=== PATIENT | female | born 1955 | race African-American/Black ===

== ENCOUNTER 2017-04-18 21:05 | Emergency (ER) | payer OTHER ==
[2017-04-18 21:17] VITALS: BP 134/74; PULSE 88; TEMP 98.2; BMI 42.3
[2017-04-18] MEDS ORDERED: ALBUTEROL SO4 0.083% IH SOL 2.5 MG/3 ML VIAL.NEB. NEB ONE ×2 (21:22→21:24)
[2017-04-18] MEDS ORDERED: predniSONE 20 MG TABLET (UD) PO ONE (21:24)
[2017-04-18] MEDS ORDERED: predniSONE 20 MG TABLET (UD) ONE (21:25)
--- NOTE | 2017-04-18 21:48 | PDOC ---
History of Present Illness - General History Source: Patient Exam Limitations: No Limitations - History of Present Illness Initial Comments: 04/18/17 21:49 The patient is a 61-year-old female, with a significant past medical history of HTN, who presents to the ED with 4 days of cold-like symptoms. The patient states that on Thursday she began to develop a cough, chills, nausea, headache , and ear pain. She reports taking Motrin and cough medicine with mild relief of her symptoms. She presents to the ER today because her symptoms have progressively worsened and she has now developed difficulty breathing accompanied by wheezing. Last dose of Motrin was this afternoon. The patient denies any vomiting, diarrhea, or abdominal pain. PCP: Dr. Fuentes <Elvira Wooten - Last Filed: 04/18/17 21:49> <Richard Cassidy - Last Filed: 04/19/17 06:18> - General Chief Complaint: Cold Symptoms Stated Complaint: FLU Past History <Elvira Wooten - Last Filed: 04/18/17 21:49> - Past Medical History COPD: No HTN: Yes Other medical history: MORBIDLY OBESE - Surgical History Cholecystectomy: Yes - Suicide/Smoking/Psychosocial Hx Smoking History: Current every day smoker Number of Cigarettes Smoked Daily: 10 Information on smoking cessation initiated: Yes 'Breaking Loose' booklet given: 04/18/17 <Richard Cassidy - Last Filed: 04/19/17 06:18> - Past Medical History Allergies/Adverse Reactions: Allergies Allergy/AdvReac Type Severity Reaction Status Date / Time No Known Allergies Allergy Unverified 04/18/17 21:11 Home Medications: Ambulatory Orders Albuterol Sulfate Inhaler - [Ventolin HFA Inhaler -] 1 - 2 inh PO Q6H PRN #1 inhaler 04/18/17 Amlodipine Besylate 10 mg PO DAILY 04/18/17 Aspirin [Ecotrin] 81 mg PO DAILY 04/18/17 Ibuprofen [Motrin Ib] 200 mg PO PRN PRN 04/18/17 Lisinopril [Prinivil -] 40 mg PO DAILY 04/18/17 Prednisone [Prednisone 50 MG TABLETS] 50 mg PO DAILY #3 tablet 04/18/17 Review of Systems - Review of Systems Able to Perform ROS?: Yes Comments:: 04/18/17 21:50 GENERAL/CONSTITUTIONAL: (+)Fever. No fever. No weakness. HEAD, EYES, EARS, NOSE AND THROAT: (+)ear pain. No change in vision. No ear discharge. No sore throat. CARDIOVASCULAR: (+)Shortness of breath. No chest pain. RESPIRATORY: (+)cough, wheezing. No hemoptysis. SKIN: No rash GASTROINTESTINAL: (+)Nausea. No vomiting, diarrhea or constipation. GENITOURINARY: No dysuria, frequency, or change in urination. MUSCULOSKELETAL: No joint or muscle swelling or pain. No neck or back pain. NEUROLOGIC: (+)Headache. No vertigo, loss of consciousness, or change in strength/sensation. ENDOCRINE: No increased thirst. No abnormal weight change. HEMATOLOGIC/LYMPHATIC: No anemia, easy bleeding, or history of blood clots. ALLERGIC/IMMUNOLOGIC: No hives or skin allergy. <Elvira Wooten - Last Filed: 04/18/17 21:49> *Physical Exam - Vital Signs Last Vital Signs Temp Pulse Resp BP Pulse Ox 98.2 F 88 18 134/74 93 L 04/18/17 21:13 04/18/17 21:13 04/18/17 21:13 04/18/17 21:13 04/18/17 21:13 - Physical Exam Comments: 04/18/17 21:52 GENERAL: Awake, alert, and fully oriented, in no acute distress. HEAD: No signs of trauma ENT: Auricles normal inspection, hearing grossly normal, nares patent, oropharynx clear EYES: PERRLA, EOMI, sclera anicteric, conjunctiva clear without exudates. Moist mucosa. NECK: Normal ROM, supple, no lymphadenopathy, JVD, or masses LUNGS: (+)Diffuse wheezes. HEART: Regular rate and rhythm, normal S1 and S2, no murmurs, rubs or gallops ABDOMEN: Soft, nontender, normoactive bowel sounds. No guarding, no rebound. No masses EXTREMITIES: Normal range of motion, no edema. No clubbing or cyanosis. No cords, erythema, or tenderness NEUROLOGICAL: Cranial nerves II through XII grossly intact. Normal speech, normal gait SKIN: Warm, Dry, normal turgor, no rashes or lesions noted <Elvira Wooten - Last Filed: 04/18/17 21:49> - Vital Signs Last Vital Signs Temp Pulse Resp BP Pulse Ox 98.2 F 88 18 134/74 93 L 04/18/17 21:13 04/18/17 21:13 04/18/17 21:13 04/18/17 21:13 04/18/17 21:13 <Richard Cassidy - Last Filed: 04/19/17 06:18> ED Treatment Course - Medications Given in the ED: ED Medications Discontinued Medications Generic Name Dose Route Start Last Admin Trade Name Freq PRN Reason Stop Dose Admin Albuterol Sulfate 1 amp 04/18/17 21:24 04/18/17 21:27 Ventolin 0.083% Nebulizer Soln - NEB 04/18/17 21:25 1 amp ONCE ONE Administration Prednisone 60 mg 04/18/17 21:24 04/18/17 21:27 Deltasone - PO 04/18/17 21:25 60 mg ONCE ONE Administration <Elvira Wooten - Last Filed: 04/18/17 21:49> Medical Decision Making - Medical Decision Making 04/19/17 06:18 CXR nl, as read by me abel rad improved after ed mgmt <Richard Cassidy - Last Filed: 04/19/17 06:18> *DC/Admit/Observation/Transfer - Attestations Scribe Attestion: 04/18/17 21:52 Documentation prepared by Elvira Wooten, acting as biomedical repair technician for Richard Cassidy MD. <Elvira Wooten - Last Filed: 04/18/17 21:49> <Richard Cassidy - Last Filed: 04/19/17 06:18> Diagnosis at time of Disposition: Reactive airway disease Qualifiers: Asthma severity: mild Asthma persistence: intermittent Asthma complication type : with acute exacerbation Qualified Code(s): J45.21 - Mild intermittent asthma with (acute) exacerbation - Discharge Dispostion Disposition: HOME Condition at time of disposition: Stable - Prescriptions Prescriptions: Albuterol Sulfate Inhaler - [Ventolin HFA Inhaler -] 1 - 2 inh PO Q6H PRN #1 inhaler PRN Reason: Dyspnea Prednisone [Prednisone 50 MG TABLETS] 50 mg PO DAILY #3 tablet - Referrals Referrals: Navdeep Fuentes [Primary Care Provider] - - Patient Instructions Printed Discharge Instructions: DI for Viral Upper Respiratory Infection -- Adult - Post Discharge Activity
== END 2017-04-18 23:20 | disposition home or self-care (01) ==
LOC: FER 21:05 → SUPCPDRO 21:05 → FER 23:20
PROC: 3E0F7GC Introduction of Other Therapeutic Substance into Respiratory Tract, Via Natural or Artificial Opening (ICD-10-PCS; principal; 2017-04-18)
DX: J45.21 Mild intermittent asthma with (acute) exacerbation (principal); I10 Essential (primary) hypertension; F17.210 Nicotine dependence, cigarettes, uncomplicated; E66.01 Morbid (severe) obesity due to excess calories; Z68.41 Body mass index [BMI] 40.0-44.9, adult
CPT/HCPCS: 71046-TC; 99281-25

== ENCOUNTER 2020-06-24 14:50 | Emergency (ER) | payer OTHER ==
[2020-06-24] MEDS ORDERED: SODIUM PHOSPHATE/NA BIPHOS 133 ML ENEMA PR ONE (15:00)
[2020-06-24 15:05] VITALS: BP 152/79; PULSE 74; TEMP 97; BMI 40.7
== END 2020-06-24 15:55 | disposition home or self-care (01) ==
LOC: FER 14:50
DX: K59.00 Constipation, unspecified (principal)
CPT/HCPCS: 99283-25